=== PATIENT | female | born 1935 | race Hispanic/Latino ===

== ENCOUNTER 2019-03-07 07:33 | Emergency (ER) | payer MEDICARE ==
[~2019-03-07 07:33] MED LIST: CYAN100084 PO; MULT-1258 PO; no home meds
[2019-03-07] MEDS ORDERED: ACETAMINOPHEN 325 MG TAB ONE (08:06)
[2019-03-07 08:21] LABS: APPEARANCE,URINE CLEAR (CLEAR); BILIRUBIN,URINE SMALL (NEGATIVE); COLOR,URINE YELLOW (YELLOW); GLUCOSE, URINE (UA) NEGATIVE (NEGATIVE); KETONES,URINE 5 mg/dL (NEGATIVE); LEUKOCYTE ESTERASE ,URINE MODERATE (NEGATIVE); NITRATE,URINE NEGATIVE (NEGATIVE); OCCULT BLOOD,URINE LARGE (NEGATIVE); PROTEIN,URINE 30 mg/dL (NEGATIVE)
[2019-03-07 08:22] LABS: RBC,URINE 0-1 /HPF (0-1)
[2019-03-07 08:23] LABS: BACTERIA,URINE Few /HPF (None Seen); MUCUS,URINE Few LPF (None Seen); SQUAMOUS EPITHELIAL CELL,UR Few /HPF (0-2)
[2019-03-07 08:27] LABS: BASOPHILS % (AUTO) 0.4 % (0.0-5.0); EOSINOPHILS % (AUTO) 0.3 % (0.0-8.0); HEMATOCRIT 36.1 % (36-48); LYMPHOCYTES % (AUTO) 10.3 % (21.0-51.0); MEAN CORPUSCULAR HEMOGLOBIN 28.3 pg (27.0-33.0); MEAN CORPUSCULAR HGB CONC 31.9 g/dL (32.0-36.0); MEAN CORPUSCULAR VOLUME 88.7 fL (79-99); MONOCYTES % (AUTO) 13.4 % (3.0-13.0); NEUTROPHILS % (AUTO) 75.1 % (40.0-77.0); PLATELET COUNT (AUTO) 173 K/uL (130-400); RED BLOOD CELL COUNT(AUTO) 4.07 MIL/uL (4.00-5.50); RED CELL DISTRIBUTION WIDTH 12.7 % (11.0-15.5); WHITE BLOOD COUNT (AUTO) 7.5 K/uL (4.8-10.8)
[2019-03-07] MEDS ORDERED: SODIUM CHLORIDE 0.9% 1000ML 1,000 ML IV ONE (08:34)
[2019-03-07] MEDS ORDERED: CEFTRIAXONE SODIUM 1 GM ONE (08:34)
[2019-03-07 08:36] LABS: CARBON DIOXIDE 27 mmol/L (21-32); CHLORIDE 103 mmol/L (101-111); GLOMERULAR FILTR. RATE CALC 56 mL/min (>60); GLUCOSE,RANDOM 116 mg/dL (70-105); POTASSIUM 4.1 mmol/L (3.5-5.1); SODIUM SERUM 137 mmol/L (136-145); UREA NITROGEN, BLOOD 17 mg/dL (7-18)
[2019-03-07 08:47] LABS: PARTIAL THROMBOPLASTIN TIME 28.7 SEC (26.3-35.5); PROTHROMBIN TIME 10.5 SEC (9.6-11.6)
[2019-03-07 08:59] LABS: ALANINE AMINOTRANSFERASE 20 U/L (12-78); ALBUMIN 3.7 g/dL (3.5-5.0); ASPARTATE AMINOTRANSFERASE 24 U/L (10-37); BILIRUBIN,TOTAL 0.4 mg/dL (0.2-1.0); CREATINE KINASE, TOTAL 54 U/L (21-232); MYOGLOBIN 159 ng/mL (10-92); TOTAL PROTEIN, SERUM 7.2 g/dL (6.0-8.3); TROPONIN I < 0.04 ng/mL (0.00-0.06)
[2019-03-07] MEDS ORDERED: IPRATROPIUM/ALBUTEROL SULFATE 3 ML SOLUTION IH ONE (09:52)
== END 2019-03-07 10:34 | disposition home or self-care (01) ==
LOC: EDH 07:33
DX: J09.X2 Influenza due to identified novel influenza A virus with other respiratory manifestations (principal)
CPT/HCPCS: 36415; 71045; 80053; 81001; 82550; 83605; 83874; 84145; 84484; 85025; 85610; 85730; 87040 ×2; 87077; 87088; 87186; 87804 ×2; 93005; 94640; 96374; 99285; J0696; J7030

== ENCOUNTER 2019-06-07 09:04 | Observation (INO) | payer MEDICARE ==
[~2019-06-07] VITALS: Ht 157.5 cm; Wt 46.9 kg
[2019-06-07 09:37] LABS: BASOPHILS % (AUTO) 0.1 % (0.0-5.0); EOSINOPHILS % (AUTO) 0.1 % (0.0-8.0); HEMATOCRIT 36.8 % (36-48); LYMPHOCYTES % (AUTO) 3.6 % (21.0-51.0); MEAN CORPUSCULAR HEMOGLOBIN 28.2 pg (27.0-33.0); MEAN CORPUSCULAR HGB CONC 32.9 g/dL (32.0-36.0); MEAN CORPUSCULAR VOLUME 85.8 fL (79-99); MONOCYTES % (AUTO) 2.7 % (3.0-13.0); NEUTROPHILS % (AUTO) 93.2 % (40.0-77.0); PLATELET COUNT (AUTO) 178 K/uL (130-400); RED BLOOD CELL COUNT(AUTO) 4.29 MIL/uL (4.00-5.50); RED CELL DISTRIBUTION WIDTH 12.8 % (11.0-15.5); WHITE BLOOD COUNT (AUTO) 10.2 K/uL (4.8-10.8)
[2019-06-07 09:47] LABS: APPEARANCE,URINE Clear (CLEAR); BILIRUBIN,URINE Negative (NEGATIVE); COLOR,URINE Yellow (YELLOW); GLUCOSE, URINE (UA) Negative (NEGATIVE); KETONES,URINE Negative (NEGATIVE); LEUKOCYTE ESTERASE ,URINE Negative (NEGATIVE); NITRATE,URINE Negative (NEGATIVE); OCCULT BLOOD,URINE Moderate (NEGATIVE); PROTEIN,URINE Trace mg/dL (NEGATIVE); UROBILINOGEN,URINE 0.2 mg/dL (0.2-1.0)
[2019-06-07 09:50] LABS: INR 0.95 (0.85-1.15); PARTIAL THROMBOPLASTIN TIME 26.8 SEC (26.3-35.5); PROTHROMBIN TIME 10.3 SEC (9.6-11.6)
[2019-06-07 09:52] LABS: POTASSIUM 3.9 mmol/L (3.5-5.1)
[2019-06-07 09:58] LABS: ALBUMIN 3.8 g/dL (3.5-5.0); BILIRUBIN,TOTAL 0.6 mg/dL (0.2-1.0); TOTAL PROTEIN, SERUM 7.5 g/dL (6.0-8.3)
[2019-06-07 10:01] LABS: BACTERIA,URINE Few /HPF (None Seen); WBC,URINE None Seen /HPF (0-1)
[2019-06-07] MEDS ORDERED: ONDANSETRON HCL 4 MG/2 ML VIAL IVP PRN (13:00)
[2019-06-07] MEDS: 1/2 NORMAL SALINE 1,000 ML IV SCH ×2 (13:00→21:34)
[2019-06-07 13:50] VITALS: BP 138/70
--- NOTE | 2019-06-07 14:00 | NUR ---
ER ADMIT TO ROOM 318 WITH DX ABD.PAIN ON SET 06/07/19
--- NOTE | 2019-06-07 16:50 | NUR ---
DR. HORTON IN TO SEE PT. ORDERS ENTERED AND RAD. HAS QUESTIONS. PAGED DRMekhi NO ANSWER, WILL CALL AGAIN.
[2019-06-07 17:56] VITALS: BP 126/60
[2019-06-07 19:50] VITALS: BP 118/71
[2019-06-07] MEDS ORDERED: IOHEXOL-350 75 ML VIAL IV ONE (19:54)
[2019-06-07] MEDS: FAMOTIDINE/PF 20 MG/2 ML VIAL IV SCH (21:29)
[2019-06-08] VITALS: BP 138/74
[2019-06-08 04:00] VITALS: BP 133/55
[2019-06-08] MEDS: 1/2 NORMAL SALINE 1,000 ML IV SCH (04:48)
[2019-06-08 04:54] LABS: HEMATOCRIT 36.3 % (36-48); MEAN CORPUSCULAR HEMOGLOBIN 28.6 pg (27.0-33.0); MEAN CORPUSCULAR HGB CONC 32.8 g/dL (32.0-36.0); MEAN CORPUSCULAR VOLUME 87.3 fL (79-99); RED BLOOD CELL COUNT(AUTO) 4.16 MIL/uL (4.00-5.50); RED CELL DISTRIBUTION WIDTH 12.7 % (11.0-15.5); WHITE BLOOD COUNT (AUTO) 5.1 K/uL (4.8-10.8)
[2019-06-08 05:10] LABS: ALBUMIN 3.3 g/dL (3.5-5.0); BILIRUBIN,TOTAL 0.4 mg/dL (0.2-1.0); CREATININE 0.9 mg/dL (0.5-1.5); POTASSIUM 3.9 mmol/L (3.5-5.1); TOTAL PROTEIN, SERUM 6.9 g/dL (6.0-8.3)
[2019-06-08 07:36] VITALS: BP 145/59
[2019-06-08] MEDS: FAMOTIDINE/PF 20 MG/2 ML VIAL IV SCH (10:01)
[2019-06-08 11:39] VITALS: BP 168/76
[2019-06-08 16:37] VITALS: BP 138/78
--- NOTE | 2019-06-08 17:55 | NUR ---
DISCHARGE PATIENT GIVEN DISCHARGE INSTRUCTIONS VIA TEACH BACK. 20G PIV TO RAC DISCONTINUED, TIP INTACT. TELE REMOVED AND RETURNED TO TELEMETRY. PATIENT TO FOLLOW UP WITH DR. HORTON TOMORROW FOR CT OF ABD/PELVIS RESULTS. PATIENT TO FOLLOW UP WITH DR. BENNETT IN 1 WEEK AND PCP IN 3 TO 5 DAYS. NO RX GIVEN. PATIENT STABLE AT THIS TIME. PATIENT WHEELED TO [facility], SPOUSE AWAITING TO TRANSPORT PATIENT HOME.
== END 2019-06-08 18:00 | disposition home or self-care (01) ==
LOC: EDH 09:04 → EDHIP 12:30 → 3CH 13:35
PROVIDERS: ADMIT Internal Medicine; ATTEND Internal Medicine
DX: C16.9 Malignant neoplasm of stomach, unspecified (principal); N28.89 Other specified disorders of kidney and ureter; E86.0 Dehydration; I10 Essential (primary) hypertension; F03.90 Unspecified dementia, unspecified severity, without behavioral disturbance, psychotic disturbance, mood disturbance, and anxiety; K56.609 Unspecified intestinal obstruction, unspecified as to partial versus complete obstruction; Z92.21 Personal history of antineoplastic chemotherapy; Z92.3 Personal history of irradiation; Z98.84 Bariatric surgery status; Z79.899 Other long term (current) drug therapy
CPT/HCPCS: 36415 ×2; 71270; 74176; 74178; 80053 ×2; 81001; 82550; 83605; 83690; 84484; 85025; 85027; 85610; 85730; 93005; 96361 ×2; 96374; 96376; 99285; G0378 ×30; J3490 ×2; Q9967

== ENCOUNTER → 2020-07-24 | Outpatient (CLI) | payer MEDICARE | END | disposition home or self-care (01) | LOC: OIH 10:09 | PROVIDERS: ATTEND Internal Medicine | DX: Q25.46 Tortuous aortic arch (principal); M47.24 Other spondylosis with radiculopathy, thoracic region; I51.7 Cardiomegaly; J44.9 Chronic obstructive pulmonary disease, unspecified | CPT/HCPCS: 71046; 72070 ==

== ENCOUNTER 2022-02-06 14:24 | Emergency (ER) | payer MEDICARE ==
[~2022-02-06] VITALS: Ht 170.2 cm; Wt 42.2 kg
[~2022-02-06 14:24] MED LIST changes: +CEPH500B PO
[2022-02-06] MEDS ORDERED: CLIN-141 PO (20:53)
[2022-02-06 20:55] VITALS: BP 140/62
[2022-02-06] MEDS ORDERED: DIPH,PERTUSS(ACELL),TET VAC/PF 0.5 ML VIAL IM ONE (21:00)
[2022-02-06] MEDS ORDERED: CLINDAMYCIN 150 MG CAP PO ONE (21:00)
[2022-02-06] MEDS ORDERED: TETANUS/DIPHTHERIA TOXOID [ADULT] 0.5 ML VIAL IM ONE (21:22)
== END 2022-02-06 21:41 | disposition home or self-care (01) ==
LOC: EDH 14:24
DX: S80.812A Abrasion, left lower leg, initial encounter (principal); Z79.899 Other long term (current) drug therapy; W18.39XA Other fall on same level, initial encounter; Y93.01 Activity, walking, marching and hiking; Y92.89 Other specified places as the place of occurrence of the external cause; Y99.8 Other external cause status
CPT/HCPCS: 73590; 90471; 90714; 90715

== ENCOUNTER 2022-12-01 01:59 | Emergency (ER) | payer MEDICARE ==
[~2022-12-01] VITALS: Ht 154.9 cm; Wt 41.3 kg
[~2022-12-01 01:59] MED LIST changes: +CLIN-141 PO
[2022-12-01 02:00] VITALS: BP 153/63; PULSE 68; RESP 18
[2022-12-01] MEDS ORDERED: ACETAMINOPHEN WITH CODEINE 1 TAB TAB PO ONE (03:30)
[2022-12-01] MEDS ORDERED: IBUP-1493 PO (03:32)
== END 2022-12-01 03:44 | disposition home or self-care (01) ==
LOC: EDH 01:59
DX: S50.311A Abrasion of right elbow, initial encounter (principal); R07.89 Other chest pain; W18.39XA Other fall on same level, initial encounter; Y93.89 Activity, other specified; Y92.89 Other specified places as the place of occurrence of the external cause; Y99.8 Other external cause status
CPT/HCPCS: 71101